=== PATIENT | female | born 1965 | race Caucasian/White ===

== ENCOUNTER 2021-04-17 20:42 | Emergency (ER) | payer BC ==
[~2021-04-17] VITALS: Ht 175.3 cm; Wt 90.0 kg
[2021-04-17] MEDS ORDERED: TRAMADOL 50MG TABLET PO ONE (22:30)
[2021-04-17] MEDS ORDERED: DIPHENHYDRAMINE 25MG CAPSULE PO ONE (22:30)
[2021-04-18 00:44] VITALS: BP 130/60
== END 2021-04-18 00:46 | disposition home or self-care (01) ==
LOC: ER 20:42
DX: R51.9 Headache, unspecified (principal); G47.30 Sleep apnea, unspecified
CPT/HCPCS: 93005; 99284